=== PATIENT | male | born 1955 | race Caucasian/White ===

== ENCOUNTER → 2016-08-08 | Outpatient (CLI) | payer BC ==
--- NOTE | 2016-08-08 11:06 | DI ---
Indication: ITS.REASON: M25.572 PAIN IN LEFT ANKLE PROCEDURE: ANKLE LEFT 3 VIEW: Encounter: Initial Comparison: None Findings: There is no acute fracture, dislocation or malalignment identified. Well-corticated ossicles beneath the medial and lateral malleoli consistent with old avulsion injuries. Ankle mortise is symmetric. The talar dome is intact. Impression: No acute osseous abnormality. Old trauma. .
== END ==
LOC: IMA 10:29
PROVIDERS: ATTEND Family Medicine
DX: M25.572 Pain in left ankle and joints of left foot (principal)